=== PATIENT | male | born 1965 | race Caucasian/White ===

== ENCOUNTER 2016-05-26 08:41 | Day surgery (SDC) | payer OTHER ==
[2016-05-22 10:32] VITALS: BMI 22.8
[2016-05-26] MEDS ORDERED: PROPOFOL 20 ML ONE ×2 (09:08)
[2016-05-26 10:44] VITALS: PULSE 65
[2016-05-26 11:25] VITALS: BP 121/65; TEMP 98
== END 2016-05-26 11:00 | disposition home or self-care (01) ==
LOC: FASU-ENDO 08:41
PROVIDERS: ATTEND Internal Medicine Gastroenterology
PROC: 0DJD8ZZ Inspection of Lower Intestinal Tract, Via Natural or Artificial Opening Endoscopic (ICD-10-PCS; principal; 2016-05-26 10:09)
DX: Z12.11 Encounter for screening for malignant neoplasm of colon (principal)